=== PATIENT | female | born 1955 | race Caucasian/White ===

== ENCOUNTER → 2016-09-10 | Outpatient (CLI) | payer BC ==
--- NOTE | ~2016-09-10 | MY11 ---
[facility] A Service of [facility] & [facility] RADIOLOGY TEXT RESULTS PATIENT: ARCHANA CADET LOCATION: [facility] : 53 UNIT #: [id number] AGE: [address]: KWESI DEL VALLE MD SEX: F ORDER DR: [id number] [facility]. [place], [place] [address] [id number] O MR#: [id number] Acc #: [id number] NAME: ARCHANA CADET : 1955 SEX: F STUDY DATE/TIME: 09/10/2016 11:47 UNIT: [facility] ROOM: STUDY DESCRIPTION: MY Mammogram Screening Dig Mikie Attending Physician: Kwesi Del Valle M.D. Ordering Physician: Kwesi Del Valle M.D. Primary Care Physician: Kwesi Del Valle M.D. MEDICAL IMAGING REPORT This report is preliminary unless electronic signature is present EXAM Digital screening mammogram, 09/10/2016 HISTORY 61-year-old woman no risk elevation. Annual screening. COMPARISON Mammograms date to 10/27/2007 with most recent 11/26/2014. FINDINGS Digital imaging of each breast was completed utilizing screening protocol. Review includes FDA-approved CAD device. Breast parenchyma is partially fatty replaced. There is some nodular dominance projecting in the upper outer quadrant of the right breast. This appears mildly progressive. It is indeterminate and warrants further evaluation and characterization. This would include spot compression views in true lateral, MLO and exaggerated craniocaudal projections along with targeted right breast ultrasound. There are no interval occurring microcalcifications and no visible architectural disturbance. IMPRESSION Incomplete mammographic evaluation. Additional right breast imaging recommended. See full report with recommendations. Patients over the age of 40 are entered into a reminder system with target due date for the next mammogram. A result letter will also be sent to the patient. BIRADS 0 Incomplete: Need Additional Imaging Evaluation and/or Prior Mammograms for Comparison STAT * RESULT [facility] A Service of [facility] & [facility] RADIOLOGY TEXT RESULTS PATIENT: ARCHANA CADET LOCATION: [facility] : 53 UNIT #: [id number] AGE: [address]: KWESI DEL VALLE MD SEX: F ORDER DR: Dictated by... Titi Bautista M.D. THIS IS AN ELECTRONICALLY VERIFIED REPORT Titi Bautista M.D. at 09/10/2016 2:59 PM Mer TD: 09/10/2016 12:08 JOB #: [id number] MEDICAL IMAGING REPORT Page 1 of 1 COPY
== END | disposition home or self-care (01) ==
LOC: CWCC 10:50
DX: Z12.31 Encounter for screening mammogram for malignant neoplasm of breast (principal); R92.8 Other abnormal and inconclusive findings on diagnostic imaging of breast
CPT/HCPCS: G0202

== ENCOUNTER → 2016-10-08 | Outpatient (CLI) | payer BC ==
--- NOTE | ~2016-10-08 | MY8 ---
[facility] A Service of [facility] RADIOLOGY TEXT RESULTS PATIENT: ARCHANA CADET LOCATION: [facility] : 53 UNIT #: [id number] AGE: [address]: KWESI DEL VALLE MD SEX: F ORDER DR: [id number] [facility]. [place], [place] [address] [id number] O MR#: [id number] Acc #: [id number] NAME: ARCHANA CADET : 1955 SEX: F STUDY DATE/TIME: 10/08/2016 14:37 UNIT: [facility] ROOM: STUDY DESCRIPTION: MY Mammogram Dx Dig Rt Attending Physician: Kwesi Del Valle M.D. Referring Physician: Kwesi Del Valle M.D. Ordering Physician: Kwesi Del Valle M.D. Primary Care Physician: Kwesi Del Valle M.D. MEDICAL IMAGING REPORT This report is preliminary unless electronic signature is present EXAM Additional views of the right breast, 10/08/2016; and targeted right breast ultrasound, 10/08/2016. INDICATION Abnormal screening mammogram performed, 09/10/2016, demonstrating nodular dominance in the upper/outer quadrant of the right breast and further evaluation with mammography and ultrasound was recommended. TECHNIQUE Compression MLO, compression true lateral, compression exaggerated CC lateral and standard true lateral views of the right breast were obtained and reviewed with an FDA-approved CAD device. COMPARISON 09/10/16, 11/26/14, 01/11/11, 02/21/09. FINDINGS MAMMOGRAPHY FINDINGS: With the benefit spot compression, the nodular dominance in the upper/outer right breast becomes less conspicuous and more similar to the prior imaging studies. There is a summation artifact in the upper hemisphere right breast on the true lateral view not reproducible with spot compression. No suspicious calcifications. Targeted ultrasound was thereafter performed. ULTRASOUND FINDINGS: The patient was initially scanned independently by the technologist and then rescanned in my presence. Imaging of the upper/outer quadrant right breast demonstrates mildly dense breast tissue, but no suspicious shadowing mass. In the 11 o'clock position, 6 cm from the nipple, there [facility] A Service of [facility] RADIOLOGY TEXT RESULTS PATIENT: ARCHANA CADET LOCATION: [facility] : 53 UNIT #: [id number] AGE: [address]: KWESI DEL VALLE MD SEX: F ORDER DR: is a probably benign complicated cyst with internal debris. It measures only about 5 x 5 mm. There is no internal color-flow, and there is increased through transmission. This is not apparent mammographically and 6-month follow-up ultrasound is recommended to document expected stability of this probably benign finding. Absent new or worsening symptoms in either breast, a ultrasound of the right breast in 6 months is recommended as described above. Findings and recommendations were discussed with the patient. She voiced understanding and agreement. IMPRESSION 1. Probably benign complicated cyst in the upper/outer quadrant right breast. Follow-up ultrasound in 6 months is recommended to document expected stability of this probably benign finding. 2. Prominent breast tissue in the upper/outer right breast is unchanged mammographically when compared to prior studies with the benefit of the additional views today. Patients over the age of 40 are entered into a reminder system with target due date for the next mammogram. A result letter will also be sent to the patient. BIRADS: 3 Probably benign finding; short interval followup suggested. Dictated by... Jose Hernandez M.D. THIS IS AN ELECTRONICALLY VERIFIED REPORT Jose Hernandez M.D. at 10/11/2016 7:30 AM Dashawn TD: 10/08/2016 17:39 JOB #: [id number] MEDICAL IMAGING REPORT Page 1 of 1 COPY
--- NOTE | ~2016-10-08 | US24 ---
[facility] A Service of [facility] RADIOLOGY TEXT RESULTS PATIENT: ARCHANA CADET LOCATION: [facility] : 53 UNIT #: [id number] AGE: [address]: KWESI DEL VALLE MD SEX: F ORDER DR: [id number] [facility] [address] [facility]. [place], [place] [address] [id number] O MR#: [id number] Acc #: [id number] NAME: ARCHANA CADET : 1955 SEX: F STUDY DATE/TIME: 10/08/2016 15:03 UNIT: [facility] ROOM: STUDY DESCRIPTION: US Breast Unilateral Attending Physician: Kwesi Del Valle M.D. Referring Physician: Kwesi Del Valle M.D. Ordering Physician: Kwesi Del Valle M.D. Primary Care Physician: Kwesi Del Valle M.D. MEDICAL IMAGING REPORT This report is preliminary unless electronic signature is present EXAM Targeted ultrasound of the right breast 10/08/2016 HISTORY Refer below. FINDINGS Please refer to the additional views right breast on the same date for full details. BIRADS: 3 Probably benign findings; short interval followup suggested. Dictated by... Jose Hernandez M.D. THIS IS AN ELECTRONICALLY VERIFIED REPORT Jose Hernandez M.D. at 10/11/2016 7:30 AM Ramesh TD: 10/08/2016 17:28 JOB #: [id number] MEDICAL IMAGING REPORT Page 1 of 1 COPY
== END | disposition home or self-care (01) ==
LOC: CMAM 14:18
DX: R92.8 Other abnormal and inconclusive findings on diagnostic imaging of breast (principal)
CPT/HCPCS: 76641; G0206